=== PATIENT | female | born 1970 | race Caucasian/White ===

== ENCOUNTER → 2022-01-19 | Day surgery (SDC) | payer MEDICAID ==
[2022-01-17 11:45] LABS: BASOPHILS % (AUTO) 0.2 % (0-1); EOSINOPHILS # (AUTO) 0.1 X10'3 (0-0.9); EOSINOPHILS % (AUTO) 0.8 % (0-6); LYMPHOCYTES # (AUTO) 4.4 X10'3 (1.1-4.8); LYMPHOCYTES % (AUTO) 35.3 % (21-51); MEAN CORPUSCULAR HEMOGLOBIN 30.4 PG (27.0-31.0); MEAN CORPUSCULAR HGB CONC 34.2 g/dL (33.0-36.5); MEAN PLATELET VOLUME 7.2 FL (7.4-10.4); MONOCYTES # (AUTO) 0.7 X10'3 (0-0.9); MONOCYTES % (AUTO) 5.3 % (2-12); NEUTROPHILS # (AUTO) 7.2 X10'3 (1.8-7.7); NEUTROPHILS % (AUTO) 58.4 % (42-75); PRE OP HEMATOCRIT 46.1 % (35.0-45.0); PRE OP HEMOGLOBIN 15.8 g/dL (12.0-16.0); PRE OP PLATELET COUNT 357 X10'3 (140-440); RED BLOOD COUNT 5.18 X10'6 (4.20-5.60); RED CELL DISTRIBUTION WIDTH 18.4 % (11.5-14.5)
[2022-01-17 12:00] LABS: HCG SERUM QL NEGATIVE
[2022-01-17 13:14] LABS: ALBUMIN 3.5 G/DL (3.4-5.0); ALBUMIN/GLOBULIN RATIO 0.9 (1.1-1.5); ALKALINE PHOSPHATASE 91 IU/L (46-116); BLOOD UREA NITROGEN 7 MG/DL (7-18); BUN/CREATININE RATIO 10.4 (6.6-38.0); CALCIUM 8.9 MG/DL (8.5-10.1); CHLORIDE 102 MMOL/L (99-107); CREATININE 0.67 MG/DL (0.40-0.90); PRE OP ALT 18 U/L (30-65); PRE OP ANION GAP 6 (8-16); PRE OP AST 16 U/L (10-37); PRE OP BILIRUB, TOTAL 0.2 MG/DL (0.0-1.0); PRE OP GLUCOSE 84 MG/DL (70-104); PRE OP POTASSIUM 3.4 MMOL/L (3.4-5.1); PRE OP SODIUM 139 MMOL/L (135-145); TOTAL CARBON DIOXIDE 30.8 MMOL/L (24-32); TOTAL PROTEIN 7.4 G/DL (6.4-8.2); eGFR > 90 ML/MIN
[~2022-01-19] VITALS: Ht 157.5 cm; Wt 103.4 kg
[~2022-01-19] MED LIST: ALBU90AE IH; BACL10TA2 PO; GABA300C PO; IBUP-1986 PO; NICO-687 TOP; albuterol 2.5 MG/3 ML nebule NEB ONE; ceFOXitin 2GM-NS 100mL ADDvant 100 ML IV ONE; famotidine 20mg tablet PO ONE; ringers solution, lacted 1,000 ML IV SCH
--- NOTE | 2022-01-19 12:10 | NUR ---
PT PREPARED FOR SURGERY, IV STARTED WITHOUT DIFFICULTY, RESPIRATORY CALLED FOR BREATHING TREATMENT, PTS ASSESSMENT COMPLETED. MD CALLED AND ASK TO SPEAK TO PATIENT, SHE HAD TO CANCEL PTS SURGERY. PT TO REPORT BACK TO SURGERY AT 530 IN THE MORNING FOR HER SURGERY TOMORROW. IV D/JOSIE WITHOUT DIFFICULTY.
== END | disposition home or self-care (01) ==
LOC: PAS 11:56
PROVIDERS: ATTEND Obstetrics & Gynecology
DX: N39.3 Stress incontinence (female) (male) (principal); Z98.890 Other specified postprocedural states; Z79.899 Other long term (current) drug therapy; Z53.8 Procedure and treatment not carried out for other reasons
CPT/HCPCS: 36415; 80053; 82948; 84703; 85025; 86885; 86900; 86901; 87081; 93005; J0694; J7120

== ENCOUNTER 2022-01-20 05:43 | Observation (INO) | payer MEDICAID ==
[2022-01-20] VITALS (24 sets, daily range): BP systolic 92–130; BP diastolic 47–87
[~2022-01-20] VITALS: Ht 157.5 cm; Wt 101.3 kg
[~2022-01-20 05:43] MED LIST changes: -albuterol 2.5 MG/3 ML nebule NEB ONE
[2022-01-20] MEDS ORDERED: albuterol 2.5 MG/3 ML nebule NEB ONE (06:40)
[2022-01-20] MEDS ORDERED: clindamycin phosphate 40gm vag cream ONE (06:53)
[2022-01-20] MEDS ORDERED: LIDOCAINE 1%/EPI 1:100,000 inj. 10 ML multi-dose vial ONE (06:53)
[2022-01-20] MEDS ORDERED: ceFAZolin 1000mg inj ONE (06:53)
[2022-01-20] MEDS ORDERED: scopolamine 1mg/72 hr patch TD ONE (07:10)
[2022-01-20] MEDS ORDERED: ringers solution, lacted 1,000 ML IV SCH (07:25)
[2022-01-20] MEDS ORDERED: meperidine/PF 25mg/ml syringe IV PRN ×3 (07:25)
[2022-01-20] MEDS ORDERED: hydrALAZINE 20mg/ml inj. IV PRN (07:25)
[2022-01-20] MEDS ORDERED: ondansetron/PF 4mg/2ml inj IV PRN ×2 (07:25→09:05)
[2022-01-20] MEDS ORDERED: acetaminophen 1,000mg/100ml IV 100 ML IV PRN (07:25)
[2022-01-20] MEDS ORDERED: proCHLORperazine 10 MG/2 ml inj IV PRN (07:25)
[2022-01-20] MEDS ORDERED: fentaNYL/PF 50MCG/1 ML 2ML syringe IV PRN ×2 (07:25)
[2022-01-20] MEDS ORDERED: fentaNYL/PF 50MCG/1 ML 2ML syringe ONE (07:30)
[2022-01-20] MEDS ORDERED: midazolam 1 mg/ML 2ml injection ONE (07:31)
[2022-01-20] MEDS ORDERED: ondansetron/PF 4mg/2ml inj ONE (08:28)
[2022-01-20] MEDS ORDERED: propofol inj 20 ML IV ONE (08:28)
[2022-01-20] MEDS ORDERED: LIDOcaine 2% (20mg/ml) 5ml vial ONE (08:28)
[2022-01-20] MEDS ORDERED: dexamethasone sod phosphate 4mg/ml inj. ONE (08:29)
[2022-01-20] MEDS ORDERED: rocuronium 10mg/ml inj IV ONE (08:29)
[2022-01-20] MEDS: ringers solution, lacted 1,000 ML IV SCH ×2 (09:05→15:40)
[2022-01-20] MEDS ORDERED: magnesium hydroxide 30ml (MOM) UD suspension PO PRN (09:05)
[2022-01-20] MEDS ORDERED: diphenhydrAMINE 50 mg/ml inj IV PRN (09:05)
[2022-01-20] MEDS ORDERED: oxyCODONE/APAP 5-325mg tablet PO PRN (09:05)
[2022-01-20] MEDS ORDERED: temazepam 15mg capsule PO PRN (09:05)
[2022-01-20] MEDS ORDERED: LORazepam 2 mg/ml vial IV PRN (09:05)
[2022-01-20] MEDS ORDERED: normal saline 500ML IV soln IV PRN (09:05)
[2022-01-20] MEDS ORDERED: naloxone 0.4 mg/ml inj IV PRN (09:05)
[2022-01-20] MEDS ORDERED: mag hydrox/Alum hydrox/simeth 30ml oral suspension PO PRN (09:05)
[2022-01-20] MEDS ORDERED: HYDROmorphone 1 mg/ml syringe IV PRN (09:10)
--- NOTE | 2022-01-20 09:14 | NUR ---
Received from OR via SURGICAL BED , accompanied by Anesthesiologist MACIE and report given by Anesthesiolgist. PATIENT WITH 20G PIV IN LEFT HAND RUNNING LR AT 100. PATIENT WITH KASH PACKING PRESENT UNDER NETTING UNDERS. NO DRAINAGE PRESENT. SCDS DONNED. HARRISON CATHETER PRESENT WITH SMALL AMOUNT OF CLEAR YELLOW URINE. 10L MASK ON WITH 100%SATURATIONS. DENIES PAIN, NAUSEA OR DISCOMFORT AT THIS TIME. Addendum: 01/20/22 at 0924 by Zev Moncada RN, RN Amended: Links added.
--- NOTE | 2022-01-20 11:24 | NUR ---
PATIENT HAS MET ALL CRITERIA FOR TRANSFER TO THE SURGICAL FLOOR. VSS. DRESSINGS INTACT. BED LOW, CALL LIGHT PRESENT AND 2 RAILS UP. RN PRESENT TO ACCEPT CARE OF PATIENT AND REPORT HAS BEEN CALLED. ALL QUESTIONS ANSWERED TO ACCEPTING JUAN PETERSON.2 BAGS OF BELONGINGS DELIVERED TO ROOM AT BEDSIDE. NOW IN 348B. PATIENT AT A COMFORTABLE LEVEL OF PAIN AND DRESSINGS STILL CDI. Addendum: 01/20/22 at 1142 by Zev Perdomo - JUAN RN Amended: Links added.
[2022-01-20] MEDS: ibuprofen 200mg tablet PO SCH ×2 (12:41→21:18)
[2022-01-20] MEDS: gabapentin 300mg capsule PO SCH ×2 (12:42→21:18)
[2022-01-20] MEDS: baclofen 10mg tablet PO PRN ×2 (13:13→21:20)
[2022-01-20] MEDS ORDERED: ketorolac trometh. 30mg/ml inj. IM SCH (14:00)
[2022-01-20] MEDS: ketorolac trometh. 30mg/ml inj. IV SCH ×2 (14:16→20:02)
--- NOTE | 2022-01-20 16:23 | NUR ---
Pt pleasant, c/o pain however pt does not want to take Percocet until bedtime. pt states Toradol is keeping pain tolerable. pt refused to ambulate at this time, russell catheter in place. Will continue to monitor patient
[2022-01-20] MEDS: simethicone 80mg chew tab PO SCH (17:52)
[2022-01-20] MEDS: oxyCODONE/APAP 5-325mg tablet PO PRN ×2 (17:56→23:33)
--- NOTE | 2022-01-20 18:30 | NUR ---
Patient in room [facility]. I have received report from JUAN Huitron and had the opportunity to ask questions and assume patient care. Addendum: 01/20/22 at 2020 by Khoa Garzon RN Amended: Links added.
[2022-01-20] MEDS: docusate sod 100mg capsule PO SCH (20:02)
[2022-01-20] MEDS: albuterol 2.5 MG/3 ML nebule NEB SCH (21:42)
[2022-01-21 02:00] VITALS: BP 97/54
[2022-01-21] MEDS: ketorolac trometh. 30mg/ml inj. IV SCH ×2 (02:00→07:19)
[2022-01-21] MEDS: ringers solution, lacted 1,000 ML IV SCH ×2 (02:00→09:05)
--- NOTE | 2022-01-21 02:00 | NUR ---
torodal given for pain, laura po iv sl. maalox given for indigestion. pt oob standinging at bedside, min drng on bed, linen change, net panties changed, and yung pad. laura well. Addendum: 01/21/22 at 0309 by Khoa Garzon RN Amended: Links added.
[2022-01-21 06:00] VITALS: BP 101/69
[2022-01-21] MEDS: oxyCODONE/APAP 5-325mg tablet PO PRN ×2 (06:11→11:22)
[2022-01-21 06:26] LABS: ALBUMIN 2.7 G/DL (3.4-5.0); ANION GAP 9 (8-16); BLOOD UREA NITROGEN 8 MG/DL (7-18); BUN/CREATININE RATIO 10.5 (6.6-38.0); CALCIUM 8.8 MG/DL (8.5-10.1); CHLORIDE 104 MMOL/L (99-107); CREATININE 0.76 MG/DL (0.40-0.90); GLUCOSE 92 MG/DL (70-104); POTASSIUM 3.9 MMOL/L (3.5-5.1); SODIUM 141 MMOL/L (135-145); TOTAL CARBON DIOXIDE 28.5 MMOL/L (24-32); eGFR 81 ML/MIN
--- NOTE | 2022-01-21 06:30 | NUR ---
Problems reprioritized. Patient report given, questions answered & plan of care reviewed with JUAN Hardy. Percocet given for pain. Addendum: 01/21/22 at 0711 by Khoa Garzon RN Amended: Links added.
[2022-01-21 06:34] LABS: BASOPHILS % (AUTO) 0.2 % (0-1); EOSINOPHILS % (AUTO) 0 % (0-6); HEMATOCRIT 38.3 % (35.0-45.0); HEMOGLOBIN 13.1 g/dl (12.0-16.0); LYMPHOCYTES # (AUTO) 3.1 X10'3 (1.1-4.8); LYMPHOCYTES % (AUTO) 18.2 % (21-51); MEAN CORPUSCULAR HEMOGLOBIN 30.3 PG (27.0-31.0); MEAN CORPUSCULAR HGB CONC 34.3 g/dL (33.0-36.5); MEAN CORPUSCULAR VOLUME 88.2 FL (78-98); MEAN PLATELET VOLUME 7.5 FL (7.4-10.4); MONOCYTES # (AUTO) 0.8 X10'3 (0-0.9); MONOCYTES % (AUTO) 4.9 % (2-12); NEUTROPHILS # (AUTO) 13.3 X10'3 (1.8-7.7); NEUTROPHILS % (AUTO) 76.7 % (42-75); PLATELET COUNT 297 X10'3 (140-440); RED BLOOD COUNT 4.34 X10'6 (4.20-5.60); RED CELL DISTRIBUTION WIDTH 18.3 % (11.5-14.5); WHITE BLOOD COUNT 17.3 X10'3 (4.5-11.0)
[2022-01-21] MEDS: ibuprofen 200mg tablet PO SCH (07:15)
[2022-01-21] MEDS: gabapentin 300mg capsule PO SCH (07:16)
[2022-01-21] MEDS: docusate sod 100mg capsule PO SCH (07:17)
[2022-01-21] MEDS: simethicone 80mg chew tab PO SCH (07:19)
[2022-01-21] MEDS: baclofen 10mg tablet PO PRN (07:23)
[2022-01-21] MEDS: albuterol 2.5 MG/3 ML nebule NEB SCH (07:50)
[2022-01-21] MEDS ORDERED: nicotine 21mg patch - 24 hr TD SCH (08:00)
[2022-01-21 10:00] VITALS: BP 117/73
--- NOTE | 2022-01-21 12:19 | NUR ---
Patient discharged home with s/o. Patient understands discharge instructions and will f/u with Dr Johnson in the office. Pt ambulated, voided x2 and has no current complaints except for slight pain.IV taken out. NOC shift took out packing and russell. Patient appears appropriate for discharge at this time.
== END 2022-01-21 12:15 | disposition home or self-care (01) ==
LOC: PAS 05:43 → PAS IN 09:08 → SUR 3N 11:43
PROVIDERS: ADMIT Obstetrics & Gynecology; ATTEND Obstetrics & Gynecology
DX: N39.3 Stress incontinence (female) (male) (principal); N81.10 Cystocele, unspecified; N81.6 Rectocele
CPT/HCPCS: 36415; 57260; 57288; 80048; 82948; 85025; 94640; 94664; 94760; 96374; 96376; C1758; C1771; G0378; J0690; J1100; J1885; J2250; J2405; J2704; J3010; J3490; J7120; A4355; A4618; A7000

== ENCOUNTER 2024-07-18 07:22 | Day surgery (SDC) | payer MEDICAID, OTHER ==
[2024-07-11 10:36] LABS: BILIRUBIN,URINE NEGATIVE (Neg); CLARITY,URINE CLEAR (Clear); COLOR,URINE YELLOW (Yellow); GLUCOSE, URINE NEGATIVE (Neg); KETONES,URINE NEGATIVE (Neg); LEUKOCYTE ESTERASE ,URINE NEGATIVE (Neg); NITRITES, URINE NEGATIVE (Neg); OCCULT BLOOD,URINE NEGATIVE (Neg); PROTEIN,URINE NEGATIVE (Neg); UROBILINOGEN,URINE 0.2 E.U/dL (0.2-1.0)
[2024-07-11 10:38] LABS: BASOPHILS % (AUTO) 0.5 % (0-1); EOSINOPHILS # (AUTO) 0.1 X10'3 (0-0.9); EOSINOPHILS % (AUTO) 1.4 % (0-6); LYMPHOCYTES # (AUTO) 3.5 X10'3 (1.1-4.8); LYMPHOCYTES % (AUTO) 38.8 % (21-51); MEAN CORPUSCULAR HEMOGLOBIN 28.9 PG (27.0-31.0); MEAN CORPUSCULAR HGB CONC 33.6 g/dL (33.0-36.5); MEAN CORPUSCULAR VOLUME 86.1 FL (78-98); MEAN PLATELET VOLUME 7.4 FL (7.4-10.4); MONOCYTES # (AUTO) 0.5 X10'3 (0-0.9); MONOCYTES % (AUTO) 5.8 % (2-12); NEUTROPHILS # (AUTO) 4.8 X10'3 (1.8-7.7); NEUTROPHILS % (AUTO) 53.5 % (42-75); PRE OP HEMATOCRIT 45.4 % (35.0-45.0); PRE OP HEMOGLOBIN 15.2 g/dL (12.0-16.0); PRE OP PLATELET COUNT 339 X10'3 (140-440); PRE OP WHITE BLOOD COUNT 8.9 10'3 (4.8-10.8); RED BLOOD COUNT 5.27 X10'6 (4.20-5.60); RED CELL DISTRIBUTION WIDTH 15.7 % (11.5-14.5)
[2024-07-11 10:43] LABS: UA COLLECTION TYPE CLN CATCH MIDSTREAM
[2024-07-11 10:57] LABS: ALBUMIN 3.2 G/DL (3.4-5.0); ALBUMIN/GLOBULIN RATIO 0.9 (1.1-1.5); ALKALINE PHOSPHATASE 83 IU/L (46-116); BLOOD UREA NITROGEN 7 MG/DL (7-18); BUN/CREATININE RATIO 12.3 (10.0-20.0); CALCIUM 8.6 MG/DL (8.5-10.1); CHLORIDE 106 MMOL/L (99-107); CREATININE 0.57 MG/DL (0.40-0.90); PRE OP ALT 20 U/L (30-65); PRE OP ANION GAP 5 (8-16); PRE OP AST 10 U/L (10-37); PRE OP BILIRUB, TOTAL 0.3 MG/DL (0.0-1.0); PRE OP GLUCOSE 79 MG/DL (70-104); PRE OP POTASSIUM 4.4 MMOL/L (3.4-5.1); PRE OP SODIUM 141 MMOL/L (135-145); TOTAL CARBON DIOXIDE 29.6 MMOL/L (24-32); TOTAL PROTEIN 6.8 G/DL (6.4-8.2); eGFR > 90 ML/MIN
[~2024-07-18] VITALS: Ht 157.5 cm; Wt 83.0 kg
[2024-07-18] VITALS (14 sets, daily range): BP systolic 106–139; BP diastolic 72–90; PULSE 75–94; RESP 14–20; TEMP 98.5; O2SAT 95–100
[~2024-07-18 07:22] MED LIST changes: +ACET-890 PO; +BUPIVAcaine 2.5mg/ml inj 50ml vial (contains preservative) ONE; +CETI10TA19 PO; +CHOL1CAP16 PO; +FENO145T38 PO; +LACT1CAP65 PO; +LIDO30CR TOP; +LIDOcaine 1% (10mg/ml) 2ml vial ONE; +MECO10005 PO; +NICO-630 TD; -NICO-687 TOP; +NYST100069 PO; +SEMA0.5P SUBCUT; +bacitracin 15gm ointment TP ONE; -ceFOXitin 2GM-NS 100mL ADDvant 100 ML IV ONE; -famotidine 20mg tablet PO ONE; -ringers solution, lacted 1,000 ML IV SCH
[2024-07-18] MEDS: famotidine 20mg tablet PO ONE (08:04)
[2024-07-18] MEDS: ceFAZolin 2gm in dextrose, iso 50 ML IV ONE (08:04)
[2024-07-18] MEDS: ringers solution, lacted 1,000 ML IV SCH (08:05)
[2024-07-18] MEDS ORDERED: ringers solution, lacted 1,000 ML IV SCH (09:05)
[2024-07-18] MEDS ORDERED: meperidine/PF 25mg/ml syringe IV PRN ×3 (09:05)
[2024-07-18] MEDS ORDERED: ondansetron/PF 4mg/2ml inj IV PRN (09:05)
[2024-07-18] MEDS ORDERED: enalaprilat 1.25mg/ml 2ml vial IV PRN (09:05)
[2024-07-18] MEDS ORDERED: labetalol 20mg/4ml (5mg/ml) syringe IV PRN (09:05)
[2024-07-18] MEDS ORDERED: sevoflurane 250ml liquid IH ONE (09:40)
[2024-07-18] MEDS: BUPIVAcaine/PF 2.5 mg/ml (0.25%) 30ml vial IJ ONE (11:53)
[2024-07-18] MEDS ORDERED: bacitracin 15gm ointment TP ONE (12:29)
[2024-07-18] MEDS: morphine 4 MG/ML inj SYRINge IV PRN (13:16)
[2024-07-18] MEDS ORDERED: meperidine/PF 100mg/ml syringe IV PRN ×2 (13:50)
[2024-07-18] MEDS: meperidine/PF 100mg/ml syringe IV PRN (14:03)
[2024-07-18] MEDS: proCHLORperazine 10 MG/2 ml inj IV PRN (14:33)
[2024-07-18] MEDS ORDERED: propofol inj 40 ML IV ONE (15:23)
[2024-07-18] MEDS ORDERED: ondansetron/PF 4mg/2ml inj ONE (15:23)
[2024-07-18] MEDS ORDERED: LIDOcaine 1%/PF 5ML 10 MG/ML VIAL ONE (15:23)
[2024-07-18] MEDS ORDERED: ROPIVAcaine 0.5% (5mg/ml) 30ml vial ONE (15:23)
[2024-07-18] MEDS ORDERED: ketorolac trometh 30MG/ML vial 30 MG/ML VIAL ONE (15:23)
[2024-07-18] MEDS ORDERED: dexamethasone sod phosphate 4mg/ml inj. ONE (15:23)
[2024-07-18] MEDS ORDERED: acetaminophen 1,000mg/100ml IV 100 ML IV ONE (15:26)
== END 2024-07-18 14:49 | disposition home or self-care (01) ==
LOC: PAS 07:22
PROVIDERS: ATTEND Podiatrist Foot & Ankle Surgery
DX: M21.6X2 Other acquired deformities of left foot (principal); M21.6X1 Other acquired deformities of right foot; M20.41 Other hammer toe(s) (acquired), right foot; M25.375 Other instability, left foot; M25.374 Other instability, right foot; E66.01 Morbid (severe) obesity due to excess calories; M54.16 Radiculopathy, lumbar region; G62.9 Polyneuropathy, unspecified; E78.5 Hyperlipidemia, unspecified; M20.42 Other hammer toe(s) (acquired), left foot; G89.18 Other acute postprocedural pain; Z98.890 Other specified postprocedural states; Z88.8 Allergy status to other drugs, medicaments and biological substances; Z79.899 Other long term (current) drug therapy; Z68.43 Body mass index [BMI] 50.0-59.9, adult
CPT/HCPCS: 27687; 28090; 28232; 28285; 28292; 28296; 28308; 28740; 36415; 64445; 64447; 73620; 80053; 81003; 82948; 85025; A6223; C1713; J0131; J0690; J0780; J1100; J1885; J2003; J2175; J2270; J2405; J2704; J2795; J3490; J7030; J7120; Z7506; Z7508; Z7512; A4215; A4618; A6449; A7000